=== PATIENT | male | born 1965 | race Caucasian/White ===

== ENCOUNTER 2024-09-19 14:02 | Emergency (ER) | payer BC, SELFPAY ==
[2024-09-19 14:09] VITALS: BP 162/103
--- NOTE | 2024-09-19 15:29 | ED.GENMED ---
History of Present Illness
General
Chief Complaint: Musculo-Skeletal Complaint
Time Seen by Provider: 09/19/24 14:26
History of Present Illness
History of Present Illness:
58-year-old male without significant past medical history presenting for 1 week of left shoulder pain. Patient reports that he recently restarted working out. Since doing specific workouts at the gym, has been having left shoulder pain which is
radiating down his arm. Denies associated chest pain. Pain is worse with abduction and internal rotation. Denies numbness or tingling. He has not tried any medications for pain. Denies any difficulty breathing. Denies additional acute medical
complaints
Phy Exam
Physical Exam
Physical Exam:
General: Well-appearing, no clinical signs of dehydration, nontoxic and in no acute distress
HEENT: protecting airway
Neck: appears supple
CV: Normal heart rate, regular rhythm
Resp: No accessory muscle use, no increased work of breathing, lungs clear to auscultation bilaterally
Abd: No distention
Extremities: No deformities, no swelling, no erythema. Mild tenderness to the anterior left shoulder. Range of motion intact. Compartments are soft. Range of motion is grossly intact, particularly with abduction.
Neuro: alert, no focal neurologic deficit
: deferred
Rectal: deferred
Psych: Normal affect
Skin: Intact
Course
Orders/Labs/Results
Orders:
Orders
09/19/24 14:13
ECG [Electrocardiogram (*1)] Urgent
Reason for Study: Chest Pain
09/19/24 14:14
EKG- Treatment ONCE
09/19/24 14:26
Shoulder, Left 2 View CR [CR Shoulder - Left Min 2 View*] Urgent
Comment:
Reason For Exam: pain
Vital Signs
Initial and Last Documented VS:
Initial Vital Signs
Temp Pulse Resp BP Pulse Ox
98.2 F 104 18 162/103 98
09/19/24 14:09 09/19/24 14:09 09/19/24 14:09 09/19/24 14:09 09/19/24 14:09
Last Documented Vital Signs
Temp Pulse Resp BP Pulse Ox
98.2 F 104 18 162/103 98
09/19/24 14:09 09/19/24 14:09 09/19/24 14:09 09/19/24 14:09 09/19/24 14:09
MDM/Problems Addressed
MDM/Problems Addressed:
58-year-old male presenting for left shoulder pain after exercising at the gym. Vital signs are normal.
On exam patient is resting comfortably, no acute distress or discomfort. Overall benign examination of the left shoulder and arm. No report of direct trauma, no deformity or swelling. Lower suspicion for fracture. No neurovascular compromise.
No infectious findings without swelling or redness. Range of motion is grossly intact, particular with patient, lower suspicion for significant rotator cuff injury. Patient may have microtear or partial tear. Arm and compartments are soft,
without concern for rhabdomyolysis. Will screen with x-ray imaging. EKG obtained, unremarkable. Without present concern for ACS equivalent.
15:40- X-ray without fracture or malalignment. Feel stable for discharge. Patient has not been taking any medications for his pain. Advising Tylenol or Motrin as needed and outpatient orthopedic follow-up as needed. Return precautions discussed
and patient verbalized understanding
*EKG
Interpreted by ED Provider?: Yes
EKG Intrepretation Date: 09/19/24
EKG Intrepretation Time: 15:35
Interpretation: normal
Comparison EKG: no changes
Heart Rate: 68
Rate: normal
Rhythm: sinus
Roy: normal axis
Interval: normal interval
QRS Pattern: normal QRS
Ischemia: no ischemia
*Critical Care Note
Total Time (30-74mins, 75-104mins- exclusive of procedures): Not Applicable
ED Attending Note
-
Portions of this chart may have been created with voice recognition software.� Occasional wrong word or��sound alike� substitutions may have occurred due to the inherent limitations of voice recognition software.
Discharge Plan
Departure
Patient with high blood pressure during this ER visit?: No
Condition: Good
Discharge Problem:
Left anterior shoulder pain
Instructions: Passive Range of Motion Exercises, Neck and Shoulders, Overuse Injuries (DC)
Prescriptions:
No Action
metoprolol succinate 25 mg Tablet Extended Release 24 Hr
25 mg PO DAILY
Multivitamin Gummies 200 mcg Tablet,Chewable
1 tab PO DAILY
acetaminophen [Tylenol Extra Strength] 500 mg tablet
1,000 mg PO Q6HPRN PRN (Reason: mild pain) Qty: 1 0RF
ibuprofen 200 mg tablet
400 - 600 mg PO Q6HPRN PRN (Reason: moderate pain) Qty: 1 0RF
oxycodone 5 mg tablet
5 mg PO Q4HPRN PRN (Reason: breakthrough/severe pain) Qty: 5 0RF
Referrals:
Tree Gomez DO [Family Provider] -
Justin Galeas MD [Active] -
Activity Restrictions/Additional Instructions:
You were seen in the emergency department for shoulder pain
You were found to have a normal x-ray of your shoulder. Please follow-up with the orthopedic doctor if symptoms are persisting and take Tylenol or Motrin as needed for pain
Please follow-up closely with your primary care physician.
Return to the emergency department for any worsening of your symptoms, or any development of chest pain, difficulty breathing, abdominal pain with persistent vomiting and inability to tolerate food or liquid by mouth (concern for dehydration),
weakness, headache or confusion, fever greater than 100.4, or any additional symptoms that are concerning to you.
Thank you for choosing [facility].
Interventions
Interventions:
*Risk Screen - Suicide Last Done: 09/19/24 14:09
*General Assessment Last Done: 09/19/24 14:09
*Neglect/Abuse Screening Last Done: 09/19/24 14:09
Discharge Date and Time
Print Language: AFGHAN
[2024-09-19 15:51] VITALS: BP 159/62
== END 2024-09-19 15:55 | disposition home or self-care (01) ==
LOC: EMR 14:02
PROVIDERS: EMERGENCY PHYSICIAN Student in an Organized Health Care Education/Training Program; FAMILY PHYSICIAN Student in an Organized Health Care Education/Training Program
DX: M25.512 Pain in left shoulder (principal)
CPT/HCPCS: 99284; 73030; 93005